=== PATIENT | female | born 1955 | race Caucasian/White ===

== ENCOUNTER → 2018-01-30 | Outpatient (CLI) | payer BC | END | disposition home or self-care (01) | LOC: GMAJ 10:45 | PROVIDERS: ATTEND Family Medicine | DX: I10 Essential (primary) hypertension (principal) ==

== ENCOUNTER → 2018-02-16 | Outpatient (CLI) | payer BC ==
--- NOTE | 2018-02-16 08:19 | RAD ---
EXAM DESCRIPTION: Fingers,Right CLINICAL HISTORY: 62 years Female, PAIN IN RIGHT FINGERS COMPARISON: None. TECHNIQUE: Right fingers three x-ray views FINDINGS: No fracture. No dislocation. Fourth and fifth fingers are visualized on three views. Deformity of the fifth metacarpal suggests an old healed fracture. Mild degenerative spurring of the dorsal DIP joints. IMPRESSION: Negative for fracture or dislocation. Electronically signed by: Catarino Bowman MD 02/16/2018 8:17 AM CDT
--- NOTE | 2018-02-16 08:20 | RAD ---
EXAM DESCRIPTION: Hand,Right 3 Views CLINICAL HISTORY: PAIN IN RIGHT HAND COMPARISON: None Available. TECHNIQUE: AP, LATERAL, AND OBLIQUE FINDINGS: Three-view right hand shows no fracture or dislocation. There is no bone lesion. Mild degenerative changes at the DIP joints and interphalangeal joint of the thumb with mild spurring at the head of the first metatarsal. Mild degenerative spurring of the lateral carpus. There is no radiopaque foreign body. IMPRESSION: Negative for fracture or dislocation. Electronically signed by: Catarino Bowman MD 02/16/2018 8:19 AM CDT
== END ==
LOC: RAD 07:42
PROVIDERS: ATTEND Orthopaedic Surgery
DX: M79.641 Pain in right hand (principal); M79.644 Pain in right finger(s)